=== PATIENT | female | born 1980 | race Caucasian/White ===

== ENCOUNTER 2024-11-22 22:19 | Outpatient (OUT) | payer OTHER, SELFPAY ==
--- NOTE | 2024-11-22 | XR_ITS ---
The [address] [address] Patient Name: YI MARTIN MRN: [id number] date: 1980 Sex: F Assigned Patient Location: [facility] Current Patient Location: Accession/Order Number: [id number] Exam Date: 11/22/2024 22:41 Report Date: 11/23/2024 01:05 At the request of: DESHAWN VALENTIN Procedure: XR ankle LT min 3V Examination:XR foot LT min 3V, XR ankle LT min 3V INDICATION:Left foot pain COMPARISON:None. TECHNIQUE:3 left foot and 3 left ankle projections are submitted. FINDINGS: Left ankle: No acute fracture or dislocations are present. The joint spaces are well-maintained. Soft tissues are unremarkable. Left foot: No acute fracture or dislocations are present. The joint spaces are well-maintained. Soft tissues are unremarkable. XR/XR ankle LT min 3V IMPRESSION: No acute fractures of the left foot or ankle. Electronically authenticated by: BRITTNEY COFFMAN Date: 11/23/2024 01:05
--- NOTE | 2024-11-22 | XR_ITS ---
The [address] [address] Patient Name: YI MARTIN MRN: [id number] date: 1980 Sex: F Assigned Patient Location: [facility] Current Patient Location: Accession/Order Number: [id number] Exam Date: 11/22/2024 22:41 Report Date: 11/23/2024 01:05 At the request of: DESHAWN VALENTIN Procedure: XR foot LT min 3V Examination:XR foot LT min 3V, XR ankle LT min 3V INDICATION:Left foot pain COMPARISON:None. TECHNIQUE:3 left foot and 3 left ankle projections are submitted. FINDINGS: Left ankle: No acute fracture or dislocations are present. The joint spaces are well-maintained. Soft tissues are unremarkable. Left foot: No acute fracture or dislocations are present. The joint spaces are well-maintained. Soft tissues are unremarkable. XR/XR foot LT min 3V IMPRESSION: No acute fractures of the left foot or ankle. Electronically authenticated by: BRITTNEY COFFMAN Date: 11/23/2024 01:05
== END 2024-11-22 22:20 | disposition home or self-care (01) ==
PROVIDERS: PCP Family Medicine; Visit Provider Preventive Medicine Preventive Medicine/Occupational Environmental Medicine
DX: M25.572 Pain in left ankle and joints of left foot (principal)
CPT/HCPCS: 73610; 73630